=== PATIENT | male | born 1945 | race African-American/Black ===

== ENCOUNTER → 2020-04-04 | Outpatient (CLI) | payer OTHER | END | disposition home or self-care (01) | LOC: CVU 14:49 | PROVIDERS: ATTEND Internal Medicine Cardiovascular Disease | DX: Z01.810 Encounter for preprocedural cardiovascular examination (principal); I08.2 Rheumatic disorders of both aortic and tricuspid valves; R07.89 Other chest pain; I10 Essential (primary) hypertension; I48.91 Unspecified atrial fibrillation | CPT/HCPCS: 93306 ==

== ENCOUNTER → 2020-08-09 | Outpatient (CLI) | payer OTHER ==
[~2020-08-09] MED LIST: AMLO-150 PO; CHOL10003 PO; CYAN-27 PO; LISI1TAB20 PO; METH500T5 PO; OMEP40CA42 PO; POTA20TA89 PO; SILD20TA2 PO
[2020-08-09 13:56] LABS: MICROSCOPIC NOT IND
[2020-08-09 15:07] LABS: BASOPHILS % (AUTO) 1 % (0-1); EOSINOPHILS % (AUTO) 1 % (1-7); LYMPHOCYTES % (AUTO) 41 % (22-44); MEAN CORPUSCULAR HEMOGLOBIN 28.1 pg (27.5-34.5); MEAN CORPUSCULAR HGB CONC 32.8 g/dL (33.2-36.2); MEAN PLATELET VOLUME 7.3 fL (7.4-10.4); MONOCYTES % (AUTO) 11 % (2-9); NEUTROPHILS % (AUTO) 46 % (42-75); PLATELET COUNT 237 x10^3/uL (130-400); RED BLOOD COUNT 5.28 x10^6/uL (4.38-5.82)
[2020-08-09 15:09] LABS: MD NO
[2020-08-09 15:16] LABS: ALANINE AMINOTRANSFERASE 27 U/L (12-78); ALBUMIN 3.7 g/dL (3.4-5.0); ANION GAP 4 mmol/L (5-15); CALCIUM 8.2 mg/dL (8.5-10.1); CHLORIDE 110 mmol/L (98-107); CREATININE 1.02 mg/dL (0.7-1.3)
[2020-08-09 15:18] LABS: ALKALINE PHOSPHATASE 81 U/L (45-117); BILIRUBIN,TOTAL 0.5 mg/dL (0.2-1.0); TOTAL PROTEIN 6.9 g/dL (6.4-8.2)
== END | disposition home or self-care (01) ==
LOC: STAR 13:28
PROVIDERS: ATTEND Urology
DX: Z01.812 Encounter for preprocedural laboratory examination (principal); Z20.822 Contact with and (suspected) exposure to COVID-19; I44.7 Left bundle-branch block, unspecified
CPT/HCPCS: 36415; 80053; 81003; 85025; 87086; 93005; U0003